=== PATIENT | female | born 1945 ===

== ENCOUNTER → 2020-04-15 | Outpatient (CLI) | payer MEDICARE, BC ==
--- NOTE | 2020-04-15 14:59 | CARD ---
MR#: [id number] Date of Study: 04/15/2020 Ordering Physician: KRISTAL HERNANDEZ, Referring Physician: KRISTAL HERNANDEZ, Tech: Iris Smith APPROVED REPORT EXAM: Two-dimensional and M-mode echocardiogram with Doppler and color Doppler. Other Information Quality : AverageHR: 58bpm INDICATION Dyspnea RISK FACTORS Hypertension Hyperlipidemia 2D DIMENSIONS RVDd3.0 (2.9-3.5cm)Left Atrium(2D)3.6 (1.6-4.0cm) IVSd1.1 (0.7-1.1cm)Aortic Root(2D)2.9 (2.0-3.7cm) LVDd4.8 (3.9-5.9cm)LVOT Diameter2.2 (1.8-2.4cm) PWd1.1 (0.7-1.1cm)LVDs3.5 (2.5-4.0cm) FS (%) 26.5 %SV55.5 ml LVEF(%)51.7 (>50%) Aortic Valve AoV Peak Edgard.161.3cm/sAoV VTI34.2cm AO Peak GR.10.4mmHgLVOT Peak Edgard.94.1cm/s LVOT VTI 21.19cmAO Mean GR.5mmHg ERNESTINE (VMAX)1.55kt8RIJ (VTI)2.27cm2 AI P 1/2 [id number] Mitral Valve MV E Neskrgmg85.9cm/sMV DECEL [id number] MV A Blgocbkc91.4cm/sMV E Mean Gr.1mmHg MV TXO528hxD/A Ratio0.6 MVA (PHT)1.91cm2 TDI E/Lateral E'4.7E/Medial E'8.3 Pulmonary Valve PV Peak Hapkrbii84.8cm/sPV Peak Grad.4mmHg Tricuspid Valve TR P. Rotqezdy811vk/sRAP WYPLKMVC5wsDl TR Peak Gr.79tlGnNBZS20hvFx Pulmonary Vein S1 Mxnykrcs72.8cm/sD2 Hjjfnwps07.3cm/s PVa [id number] LEFT VENTRICLE The left ventricle is normal size. There is normal left ventricular wall thickness. The left ventricu lar systolic function is normal. The Ejection Fraction is 55%. There is normal LV segmental wall selene on. Transmitral Doppler flow pattern is Grade I-abnormal relaxation pattern. RIGHT VENTRICLE The right ventricle is normal size. There is normal right ventricular wall thickness. The right ventr icular systolic function is normal. ATRIA The left atrium size is normal. The right atrium size is normal. The interatrial septum is intact wit h no evidence for an atrial septal defect or patent foramen ovale as noted on 2-D or Doppler imaging. AORTIC VALVE The aortic valve is thickened but opens well. Doppler and Color Flow revealed mild to moderate aortic regurgitation. There is no significant aortic valvular stenosis. MITRAL VALVE The mitral valve is normal in structure and function. There is no evidence of mitral valve prolapse. There is no mitral valve stenosis. Doppler and Color-flow revealed trace mitral regurgitation. TRICUSPID VALVE The tricuspid valve is normal in structure and function. Doppler and Color Flow revealed trace tricus pid regurgitation with an estimated PAP of 21 mmHg. There is no tricuspid valve stenosis. PULMONIC VALVE The pulmonic valve is not well visualized. Doppler and Color Flow revealed no pulmonic valvular regur gitation. GREAT VESSELS The aortic root is normal in size. The IVC is dilated and collapses >50% with inspiration. PERICARDIAL EFFUSION There is no evidence of significant pericardial effusion. Critical Notification Critical Value: No <Conclusion> The left ventricular systolic function is normal. The Ejection Fraction is 55%. There is normal LV segmental wall motion. Transmitral Doppler flow pattern is Grade I-abnormal relaxation pattern. Mild to moderate aortic regurgitation. Trace mitral regurgitation. Trace tricuspid regurgitation with an estimated PAP of 21 mmHg. There is no evidence of significant pericardial effusion. Signed by : Torin Luna, Electronically Approved : 04/15/2020 14:59:11
== END | disposition home or self-care (01) ==
LOC: CARD 12:42
PROVIDERS: ATTEND Internal Medicine Cardiovascular Disease
DX: I35.1 Nonrheumatic aortic (valve) insufficiency (principal); R06.00 Dyspnea, unspecified
CPT/HCPCS: 93306